=== PATIENT | female | born 1985 | race Caucasian/White ===

== ENCOUNTER 2019-05-04 09:51 | Emergency (ER) | payer BC, OTHER ==
[~2019-05-04] VITALS: Ht 154.9 cm; Wt 73.9 kg
--- NOTE | 2019-05-04 10:00 | NUR ---
PATIENT ARRIVED AT [facility], ACCOMPANIED BY MOM/DPOA. WITH C/O MIGRANE HEADACHE SINCE WEDNESDAY, WORST SINCE LAST NIGHT. PATIENT REPORTS EGG RETRIEVAL LAST WEDNESDAY. PATIENT A&O X 4, NO ACUTE DISTRESS.
--- NOTE | 2019-05-04 10:15 | NUR ---
DR BETANCOURT AT [facility] Addendum: 05/04/19 at 1117 by RICK CORRECTION: DR. BARRERA
[2019-05-04] MEDS ORDERED: IV NS 0.9% 1,000 ML BAG IV ONE (10:30)
[2019-05-04] MEDS ORDERED: diphenhydrAMINE HCL 50 MG/ML VIAL IV ONE (10:30)
[2019-05-04] MEDS ORDERED: KETOROLAC TROMETHAMINE INJ 30 MG/ML VIAL IV ONE (10:30)
[2019-05-04] MEDS ORDERED: ONDANSETRON HCL/PF 4 MG/2 ML VIAL IVP ONE (10:30)
--- NOTE | 2019-05-04 10:30 | NUR ---
PATIENT REPORTS HAVING HCG SHOT AND SAID SHE DOESNT WANT TO DO ANY TEST IT WILL COME FALSE POSITIVE. SCREEN WAIVER SIGNED BY MOTHER/DPOA AT BEDSIDE AND WITNESSED BY NURSING STAFF. DR BETANCOURT AWARE Addendum: 05/04/19 at 1117 by RICK CORRECTION: DR. BARRERA
[2019-05-04] MEDS ORDERED: diphenhydrAMINE HCL 50 MG/ML VIAL ONE (10:46)
[2019-05-04] MEDS ORDERED: KETOROLAC TROMETHAMINE INJ 30 MG/ML VIAL ONE (10:46)
[2019-05-04] MEDS ORDERED: ONDANSETRON HCL/PF 4 MG/2 ML VIAL ONE (10:47)
[2019-05-04 10:52] LABS: BASOPHILS % (AUTO) 0.5 % (0.0-2.0); EOSINOPHILS % (AUTO) 1.1 % (0.0-6.0); HEMATOCRIT 41 % (33-45); HEMOGLOBIN 13.5 g/dL (11.5-14.8); LYMPHOCYTES # (AUTO) 1.9 /CMM (0.8-4.8); LYMPHOCYTES % (AUTO) 21.7 % (20.0-44.0); MEAN CORPUSCULAR HGB CONC 33 g/dl (31.0-36.0); MEAN CORPUSCULAR VOLUME 92 fL (82-100); MONOCYTES # (AUTO) 0.6 /CMM (0.1-1.30); MONOCYTES % (AUTO) 6.7 % (2.0-12.0); NEUTROPHILS # (AUTO) 6.2 /CMM (1.8-8.9); PLATELET COUNT (AUTO) 190 /CMM (150-450); RED BLOOD CELL COUNT(AUTO) 4.46 MIL/uL (4.0-5.2); WHITE BLOOD COUNT (AUTO) 8.8 K/uL (4.3-11.0)
[2019-05-04 10:59] LABS: CALCIUM, SERUM 9.2 mg/dL (8.5-10.1); CREATININE 0.7 mg/dL (0.6-1.3); POTASSIUM 3.9 mmol/L (3.5-5.1)
[2019-05-04] MEDS ORDERED: METOCLOPRAMIDE HCL 10 MG/2 ML VIAL ONE (11:59)
[2019-05-04] MEDS ORDERED: MORPHINE SULFATE INJ 4 MG/ML DISP.SYRIN ONE (11:59)
[2019-05-04] MEDS ORDERED: MORPHINE SULFATE INJ 2 MG/ML DISP.SYRIN IV ONE (12:00)
[2019-05-04] MEDS ORDERED: METOCLOPRAMIDE HCL 10 MG/2 ML VIAL IV ONE (12:00)
--- NOTE | 2019-05-04 13:58 | NUR ---
IV removed. Catheter intact and site benign. Pressure and 4x4 applied to site. No bleeding noted.Patient discharged to home in stable condition. Written and verbal after care instructions given. Patient verbalizes understanding of instruction.
[2019-05-04 13:59] VITALS: BP 101/75
== END 2019-05-04 14:00 | disposition home or self-care (01) ==
LOC: ER 09:51
DX: G43.909 Migraine, unspecified, not intractable, without status migrainosus (principal); J45.909 Unspecified asthma, uncomplicated; L25.9 Unspecified contact dermatitis, unspecified cause; Z88.9 Allergy status to unspecified drugs, medicaments and biological substances
CPT/HCPCS: 36415; 80048; 84443; 85025; 96374; 96375; 99283; J1200; J1885; J2270; J2405; J2765; J7030